=== PATIENT | female | born 1985 | race Caucasian/White ===

== ENCOUNTER 2024-02-01 04:11 | Observation (INO) ==
[2024-02-01] MEDS: ZOFRAN INJ 4 MG VIAL IM ONE (04:45)
--- NOTE | 2024-02-01 04:55 | DR.NAUSEAF ---
HPI Time Seen Time Seen by Provider: 02/01/24 04:55 Primary Care Physician Primary Care Physician: Navjot Mcdaniel Complaints Chief Complaint:: Patient ambulatory in er with complaints of acute onset nausea and vomiting that started prior to arival. Patient localizes pain to mid abdomen and rates pain 10/10. Pt states lbm was today. Self Treatment fo Chief Complaint: na COVID-19 Coronavirus risk:travel/contact w/high risk person: No Has patient experienced Coronavirus symptoms: No Reviewed Nurses Notes Reviewed: Yes Source History Provided: Patient Mode of Arrival Mode of Arrival: Ambulatory Timing Onset of Chief Complaint: 02/01/24 PMH PMH Past Medical History: Yes Past Medical History: Anxiety and Depression Past Surgical History: No Family History History of Family Medical Conditions: Yes Family Medical History: Hypertension Social History Does patient currently use any type of tobacco product: Yes Have you used tobacco products in the last 12 months: Yes Type of Tobacco Use: Cigarettes Does any household member use tobacco: Yes Alcohol Use: None Do you use any recreational Drugs:: No Lives With: Family Lives Where: Home Travel Risk Coronavirus risk:travel/contact w/high risk person: No Has patient experienced Coronavirus symptoms: No Infectious screening Have you traveled outside the country in the last 6 months?: No Isolation: Standard PE Vital Signs Vitals: Vital Signs Temperature 98.8 F Pulse Rate [Bilateral Radial] 95 Pulse Rate 84 Respiratory Rate 16 Respiratory Rate 26 Blood Pressure [Right Arm] 108/59 Blood Pressure 107/68 O2 Sat by Pulse Oximetry 100 O2 Sat by Pulse Oximetry 94 ROR Labs Reviewed 02/04/24 05:20 02/04/24 05:20 Laboratory: 02/01/24 06:33 Urine,Clean Catch Urine Culture - Final WBC 20.5 X10^3/uL (3.6-10.0) H 02/01/24 05:11 RBC 4.84 X10^6/uL (3.5-5.4) 02/01/24 05:11 Hgb 13.8 g/dL (12.0-16.0) 02/01/24 05:11 Hct 42.2 % (36.0-47.0) 02/01/24 05:11 MCV 87.3 fL (80.0-100.0) 02/01/24 05:11 MCH 28.5 pg (27.0-34.0) 02/01/24 05:11 MCHC 32.7 g/dL (33.0-35.0) L 02/01/24 05:11 RDW 14.8 % (11.6-16.5) 02/01/24 05:11 Plt Count 302 X10^3/uL (150.0-450.0) 02/01/24 05:11 MPV 8.9 fL (7.4-11.0) 02/01/24 05:11 Neut % (Auto) 87.6 % (42.0-75.0) H 02/01/24 05:11 Lymph % (Auto) 6.2 % (21.0-51.0) L 02/01/24 05:11 [place] % (Auto) 4.6 % (0.0-13.0) 02/01/24 05:11 Eos % (Auto) 1.1 % (0.9-2.9) 02/01/24 05:11 Baso % (Auto) 0.5 % (0.2-1.0) 02/01/24 05:11 Neut # (Auto) 18.0 x10^3/uL (2.2-4.8) H 02/01/24 05:11 Lymph # (Auto) 1.3 X10^3/uL (1.3-2.9) 02/01/24 05:11 [place] # (Auto) 0.9 x10^3/uL (0.3-0.8) H 02/01/24 05:11 Eos # (Auto) 0.2 x10^3/uL (0.0-0.2) 02/01/24 05:11 Baso # (Auto) 0.1 X10^3/uL (0.0-0.1) 02/01/24 05:11 Absolute Nucleated RBC 0.0 /100WBC 02/01/24 05:11 Sodium 140 mmol/L (136-145) 02/01/24 05:11 Corrected Sodium 140 mmol/L (136-145) 02/01/24 05:11 Potassium 4.9 mmol/L (3.5-5.1) 02/01/24 05:11 Chloride 105 mmol/L (98-107) 02/01/24 05:11 Carbon Dioxide 29.4 mmol/L (21-32) 02/01/24 05:11 BUN 9 mg/dL (7-18) 02/01/24 05:11 Creatinine 0.78 mg/dL (0.55-1.02) 02/01/24 05:11 Est GFR (MDRD) Af Amer > 60 (>60) 02/01/24 05:11 Est GFR (MDRD) Non-Af > 60 (>60) 02/01/24 05:11 Glucose 116 mg/dL (65-99) H 02/01/24 05:11 Calcium 9.1 mg/dL (8.5-10.1) 02/01/24 05:11 Corrected Calcium TNP 02/01/24 05:11 Total Bilirubin 0.40 mg/dL (0.2-1.0) 02/01/24 05:11 AST 227 Units/L (15-37) H 02/01/24 05:11 ALT 427 Units/L (12-78) H 02/01/24 05:11 Alkaline Phosphatase 133 Units/L (46-116) H 02/01/24 05:11 Total Protein 7.8 g/dL (6.4-8.2) 02/01/24 05:11 Albumin 3.5 g/dL (3.4-5.0) 02/01/24 05:11 Globulin 4.3 g/dL (2.5-4.5) 02/01/24 05:11 Albumin/Globulin Ratio 0.8 Ratio (1.1-2.1) L 02/01/24 05:11 Amylase 99 Units/L (25-115) 02/01/24 05:11 Lipase 38 Units/L (16-77) 02/01/24 05:11 Specimen Type Clean catch urine 02/01/24 06:33 Urine Color Yellow (YELLOW) 02/01/24 06:33 Urine Appearance Slightly hazy (CLEAR) 02/01/24 06:33 Urine pH 6.0 (5.0 - 8.0) 02/01/24 06:33 Ur Specific [place] 1.020 (1.000-1.030) 02/01/24 06:33 Urine Protein 1+ (NEGATIVE) 02/01/24 06:33 Urine Glucose (UA) Negative (NEGATIVE) 02/01/24 06:33 Urine Ketones Negative (NEGATIVE) 02/01/24 06:33 Urine Blood 5+ (NEGATIVE) 02/01/24 06:33 Urine Nitrite Negative (NEGATIVE) 02/01/24 06:33 Urine Bilirubin Negative (NEGATIVE) 02/01/24 06:33 Urine Urobilinogen Normal (NORMAL) 02/01/24 06:33 Ur Leukocyte Esterase 3+ (NEGATIVE) 02/01/24 06:33 Urine RBC Tntc /HPF (0-3) A 02/01/24 06:33 Urine WBC 10-20 /HPF (0-5) A 02/01/24 06:33 Ur Squamous Epith Cells Rare /HPF (NEGATIVE) 02/01/24 06:33 Urine Bacteria Trace /HPF (NEGATIVE) 02/01/24 06:33 Urine Trichomonas Rare /HPF (NEGATIVE) 02/01/24 06:33 Ur Culture Indicated? Yes/culture set up 02/01/24 06:33 Opioid Opioid Risk Tool Age (Drew box if 16-45): Yes History of Preadolescent Sexual Abuse: No Total: 1 Total Score Risk Category: Low Risk Copyright: Rogelio MIKE predicting aberrant behaviors Discharge Plan Discharge Plan Patient Disposition: 09 ADMITTED INPATIENT Condition: Stable Orders to Discharge Patient Discharge Orders: Discharge (Routine); Ordered 02/04/24 Ordered By: POOJA FAULKNER
[2024-02-01] MEDS: NS 1,000 ML IV 1,000 ML IV ONE (05:12)
[2024-02-01] MEDS: ZOFRAN INJ 4 MG VIAL IVP ONE ×2 (05:16→06:29)
[2024-02-01 05:17] LABS: BASOPHILS # (AUTO) 0.1 X10^3/uL (0.0-0.1); BASOPHILS % (AUTO) 0.5 % (0.2-1.0); EOSINOPHILS # (AUTO) 0.2 x10^3/uL (0.0-0.2); EOSINOPHILS % (AUTO) 1.1 % (0.9-2.9); HEMATOCRIT 42.2 % (36.0-47.0); HEMOGLOBIN 13.8 g/dL (12.0-16.0); LYMPHOCYTES # (AUTO) 1.3 X10^3/uL (1.3-2.9); LYMPHOCYTES % (AUTO) 6.2 % (21.0-51.0); MEAN CORPUSCULAR HEMOGLOBIN 28.5 pg (27.0-34.0); MEAN CORPUSCULAR HGB CONC 32.7 g/dL (33.0-35.0); MEAN CORPUSCULAR VOLUME 87.3 fL (80.0-100.0); MEAN PLATELET VOLUME 8.9 fL (7.4-11.0); MONOCYTES # (AUTO) 0.9 x10^3/uL (0.3-0.8); MONOCYTES % (AUTO) 4.6 % (0.0-13.0); NEUTROPHILS % (AUTO) 87.6 % (42.0-75.0); PLATELET COUNT 302 X10^3/uL (150.0-450.0); RED BLOOD COUNT 4.84 X10^6/uL (3.5-5.4); RED CELL DISTRIBUTION WIDTH 14.8 % (11.6-16.5); WHITE BLOOD COUNT 20.5 X10^3/uL (3.6-10.0)
[2024-02-01 05:33] LABS: ALANINE AMINOTRANSFERASE 427 Units/L (12-78); ALBUMIN 3.5 g/dL (3.4-5.0); ALKALINE PHOSPHATASE 133 Units/L (46-116); AMYLASE 99 Units/L (25-115); ASPARTATE AMINO TRANSFERASE 227 Units/L (15-37); BLOOD UREA NITROGEN 9 mg/dL (7-18); CALCIUM 9.1 mg/dL (8.5-10.1); CARBON DIOXIDE 29.4 mmol/L (21-32); CHLORIDE 105 mmol/L (98-107); COR NA(FOR HYPERGLY) 140 mmol/L (136-145); CREATININE 0.78 mg/dL (0.55-1.02); GLUCOSE 116 mg/dL (65-99); LIPASE 38 Units/L (16-77); SODIUM 140 mmol/L (136-145); TOTAL PROTEIN 7.8 g/dL (6.4-8.2); eGFR NON BLACK RACES > 60 (>60)
[2024-02-01 05:34] LABS: POTASSIUM 4.9 mmol/L (3.5-5.1)
--- NOTE | 2024-02-01 05:46 | CT ---
PROCEDURE: CT Abdomen and Pelvis without IV Contrast.HISTORY: Abdomen pain and emesis.TECHNIQUE: Axial images were performed through the abdomen and pelvis without the administration of IV contrast with multiplanar reformations . Oral contrast was notadministered . Dose reduction techniques including Automated Exposure Control (AEC) and adjustment of mA and kV were utilized ..COMPARISON: None.TECHNICAL QUALITY: Satisfactory.FINDINGS:Clear lung bases.Liver, spleen, adrenals, and pancreas show no significant abnormality.Kidneys show no stones or obstruction.1 cm gallstone in the gallbladder with no inflammation and normal biliary tree.No ascites or pneumoperitoneum.Normal aorta.No lymphadenopathy.Fluid throughout the colon could be related to enteritis. No mucosal thickening. Normal appendix.Pelvis shows no masses or free fluid with unremarkable reproductive organs and urinary bladder.Probable dislodged tubal ligation clips upper abdomen and right lower quadrant.No acute bony abnormality.IMPRESSION:1. Cholelithiasis.2. Fluid throughout the colon and some in the small bowel could be related to enteritis that could be infectious or related to inflammatory bowel disease. No definite mucosal thickening is seen however.3. No other significant abnormality identified.THIS IS AN ELECTRONICALLY VERIFIED FINAL REPORT02/01/2024 5:42 AM - Electronically signed by Tavares Card MD
[2024-02-01 06:38] LABS: BILIRUBIN,URINE NEGATIVE (NEGATIVE); BLOOD/HEMOGLOBIN,URINE 5+ (NEGATIVE); GLUCOSE, URINE NEGATIVE (NEGATIVE); KETONES,URINE NEGATIVE (NEGATIVE); LEUKOCYTE ESTERASE ,URINE 3+ (NEGATIVE); NITRITES,URINE NEGATIVE (NEGATIVE); PROTEIN,URINE 1+ (NEGATIVE); UROBILINOGEN,URINE NORMAL (NORMAL)
[2024-02-01 07:00] LABS: APPEARANCE,URINE SLIGHTLY HAZY (CLEAR); COLOR,URINE YELLOW (YELLOW)
[2024-02-01 07:01] LABS: BACTERIA,URINE TRACE /HPF (NEGATIVE); RBC,URINE TNTC /HPF (0-3); SQUAMOUS EPITHELIAL CELL,UR RARE /HPF (NEGATIVE); TRICHOMONAS,URINE RARE /HPF (NEGATIVE)
[2024-02-01] MEDS: ROCEPHIN VIAL 1 GRAM IVP ONE (08:19)
[2024-02-01] MEDS ORDERED: MAGNESIUM SULFATE 40 GRAMS IV 40 G/1,000 ML BAG IV PRN (10:52)
[2024-02-01 11:32] VITALS: BMI 23.3
[2024-02-01] MEDS: NS 1,000 ML IV 1,000 ML IV SCH (11:43)
[2024-02-01] MEDS: PROTONIX INJ 40 MG VIAL IVP SCH (11:55)
[2024-02-01] MEDS: ZOFRAN INJ 4 MG VIAL IVP PRN (12:02)
--- NOTE | 2024-02-01 12:33 | DR.H&P ---
H&P History & Physical for Day of: H&P Date: 02/01/24 Chief Complaint Chief Complaint: ABDMINAL PAIN, N/V Allergies Allergies Allergy/AdvReac Type Severity Reaction Status Date / Time No Known Allergies Allergy Verified 02/01/24 04:19 History of Present Illness History of Present Illness: PT IS 38 WF, ER ADMISSION WITH CO ABDOMINAL PAIN, N/V/D. PT REPORTS SHE HAS HAD STOMACH ISSUES FOR A LONG TIME TAKING PROTONIX PO AT HOME. PT DENIES EVERY HAVING AN EGD. PT HAD GALLSTONES ON CT. PT ADMITTED FOR TREATMENT AND EVALUTION OF ACUTE ILLNESS. Past Medical History Past Medical History: Anxiety, Depression and GERD Past Surgical History Surgical History: COMPENSATION MANAGER Surgery (TUBAL LIGATION) Family History Family Medical History: NE and Hypertension Social History Does patient currently use any type of tobacco product: Yes Have you used tobacco products in the last 12 months: Yes Type of Tobacco Use: Cigarettes How many years tobacco product used: 5 Does any household member use tobacco: No Alcohol Use: None Drug Use: None Medications Home Medications: Home Medications Medication Instructions Recorded Confirmed Type cariprazine 1.5 mg capsule 1.5 mg PO DAILY 02/01/24 02/01/24 History (Vraylar) pantoprazole 40 mg tablet,delayed 40 mg PO DAILY 02/01/24 02/01/24 History release (Protonix) quetiapine 100 mg tablet (Seroquel) 150 mg PO BID 02/01/24 02/01/24 History sertraline 50 mg tablet (Zoloft) 50 mg PO DAILY 02/01/24 02/01/24 History Labs 02/01/24 05:11 02/01/24 05:11 Labs: Laboratory WBC 20.5 X10^3/uL (3.6-10.0) H 02/01/24 05:11 RBC 4.84 X10^6/uL (3.5-5.4) 02/01/24 05:11 Hgb 13.8 g/dL (12.0-16.0) 02/01/24 05:11 Hct 42.2 % (36.0-47.0) 02/01/24 05:11 MCV 87.3 fL (80.0-100.0) 02/01/24 05:11 MCH 28.5 pg (27.0-34.0) 02/01/24 05:11 MCHC 32.7 g/dL (33.0-35.0) L 02/01/24 05:11 RDW 14.8 % (11.6-16.5) 02/01/24 05:11 Plt Count 302 X10^3/uL (150.0-450.0) 02/01/24 05:11 MPV 8.9 fL (7.4-11.0) 02/01/24 05:11 Neut % (Auto) 87.6 % (42.0-75.0) H 02/01/24 05:11 Lymph % (Auto) 6.2 % (21.0-51.0) L 02/01/24 05:11 [place] % (Auto) 4.6 % (0.0-13.0) 02/01/24 05:11 Eos % (Auto) 1.1 % (0.9-2.9) 02/01/24 05:11 Baso % (Auto) 0.5 % (0.2-1.0) 02/01/24 05:11 Neut # (Auto) 18.0 x10^3/uL (2.2-4.8) H 02/01/24 05:11 Lymph # (Auto) 1.3 X10^3/uL (1.3-2.9) 02/01/24 05:11 [place] # (Auto) 0.9 x10^3/uL (0.3-0.8) H 02/01/24 05:11 Eos # (Auto) 0.2 x10^3/uL (0.0-0.2) 02/01/24 05:11 Baso # (Auto) 0.1 X10^3/uL (0.0-0.1) 02/01/24 05:11 Absolute Nucleated RBC 0.0 /100WBC 02/01/24 05:11 Sodium 140 mmol/L (136-145) 02/01/24 05:11 Corrected Sodium 140 mmol/L (136-145) 02/01/24 05:11 Potassium 4.9 mmol/L (3.5-5.1) 02/01/24 05:11 Chloride 105 mmol/L (98-107) 02/01/24 05:11 Carbon Dioxide 29.4 mmol/L (21-32) 02/01/24 05:11 BUN 9 mg/dL (7-18) 02/01/24 05:11 Creatinine 0.78 mg/dL (0.55-1.02) 02/01/24 05:11 Est GFR (MDRD) Af Amer > 60 (>60) 02/01/24 05:11 Est GFR (MDRD) Non-Af > 60 (>60) 02/01/24 05:11 Glucose 116 mg/dL (65-99) H 02/01/24 05:11 Lactic Acid 0.8 mmol/L (0.4-2.0) 02/01/24 09:31 Calcium 9.1 mg/dL (8.5-10.1) 02/01/24 05:11 Corrected Calcium TNP 02/01/24 05:11 Total Bilirubin 0.40 mg/dL (0.2-1.0) 02/01/24 05:11 AST 227 Units/L (15-37) H 02/01/24 05:11 ALT 427 Units/L (12-78) H 02/01/24 05:11 Alkaline Phosphatase 133 Units/L (46-116) H 02/01/24 05:11 Total Protein 7.8 g/dL (6.4-8.2) 02/01/24 05:11 Albumin 3.5 g/dL (3.4-5.0) 02/01/24 05:11 Globulin 4.3 g/dL (2.5-4.5) 02/01/24 05:11 Albumin/Globulin Ratio 0.8 Ratio (1.1-2.1) L 02/01/24 05:11 Amylase 99 Units/L (25-115) 02/01/24 05:11 Lipase 38 Units/L (16-77) 02/01/24 05:11 Specimen Type Clean catch urine 02/01/24 06:33 Urine Color Yellow (YELLOW) 02/01/24 06:33 Urine Appearance Slightly hazy (CLEAR) 02/01/24 06:33 Urine pH 6.0 (5.0 - 8.0) 02/01/24 06:33 Ur Specific [place] 1.020 (1.000-1.030) 02/01/24 06:33 Urine Protein 1+ (NEGATIVE) 02/01/24 06:33 Urine Glucose (UA) Negative (NEGATIVE) 02/01/24 06:33 Urine Ketones Negative (NEGATIVE) 02/01/24 06:33 Urine Blood 5+ (NEGATIVE) 02/01/24 06:33 Urine Nitrite Negative (NEGATIVE) 02/01/24 06:33 Urine Bilirubin Negative (NEGATIVE) 02/01/24 06:33 Urine Urobilinogen Normal (NORMAL) 02/01/24 06:33 Ur Leukocyte Esterase 3+ (NEGATIVE) 02/01/24 06:33 Urine RBC Tntc /HPF (0-3) A 02/01/24 06:33 Urine WBC 10-20 /HPF (0-5) A 02/01/24 06:33 Ur Squamous Epith Cells Rare /HPF (NEGATIVE) 02/01/24 06:33 Urine Bacteria Trace /HPF (NEGATIVE) 02/01/24 06:33 Urine Trichomonas Rare /HPF (NEGATIVE) 02/01/24 06:33 Ur Culture Indicated? Yes/culture set up 02/01/24 06:33 Review of Systems Constitutional: No Symptoms Reported Eyes: No Symptoms Reported ENT: No Symptoms Reported Respiratory: No Symptoms Reported Cardiovascular: No Symptoms Reported Gastrointestinal: Nausea, Vomiting, Abdominal Pain and Diarrhea Genitourinary: No Symptoms Reported Musculoskeletal: No Symptoms Reported Skin: No Symptoms Reported Neurological: No Symptoms Reported Physical Exam Vital Signs: Vital Signs Pulse Rate [Bilateral Radial] 95 Respiratory Rate 16 Blood Pressure [Right Arm] 108/59 O2 Sat by Pulse Oximetry 100 Oriented: Normal Eyes: Normal Ear: Normal Nose: Normal Throat: Normal Respiratory: Clear Throughout Cardiovascular: Normal : Normal Auscultation: Bowel Sounds: Normal Palpation: negative Spleen Enlarged or Liver Enlarged Tenderness: RUQ and Epigastric Skin: Normal Musculoskeletal: Normal Psychiatric: Normal Mood Description: Calm Speech Pattern: Clear Assessment/Plan (1) Gallstones and inflammation of gallbladder without obstruction: Narrative Support Text: ADMIT, IV HYDRATION, IV ATBX THERAPY PAIN CONTROL US, DR HEARN CONSULTED IV PROTONIX VERIFY HOME MEDICATION Status: Acute (2) Gastritis: Status: Acute (3) Nausea: Status: Acute (4) UTI (urinary tract infection): Qualifiers: Hematuria presence: with hematuria Urinary tract infection type: site unspecified Qualified Code(s): N39.0 - Urinary tract infection, site not specified; R31.9 - Hematuria, unspecified Status: Acute
[2024-02-01] MEDS: LEVAQUIN PREMIX IV 500 MG 500 MG/100 ML BAG IV SCH (17:23)
[2024-02-01] MEDS: ZOFRAN INJ 4 MG VIAL ONE (17:53)
[2024-02-01] MEDS: ULTRAM PO PRN (23:24)
[2024-02-02 06:25] LABS: BASOPHILS # (AUTO) 0.1 X10^3/uL (0.0-0.1); BASOPHILS % (AUTO) 0.7 % (0.2-1.0); EOSINOPHILS # (AUTO) 0.4 x10^3/uL (0.0-0.2); EOSINOPHILS % (AUTO) 5.2 % (0.9-2.9); HEMATOCRIT 35.8 % (36.0-47.0); HEMOGLOBIN 11.7 g/dL (12.0-16.0); LYMPHOCYTES % (AUTO) 35.7 % (21.0-51.0); MEAN CORPUSCULAR HEMOGLOBIN 28.8 pg (27.0-34.0); MEAN CORPUSCULAR HGB CONC 32.7 g/dL (33.0-35.0); MEAN PLATELET VOLUME 9.8 fL (7.4-11.0); MONOCYTES # (AUTO) 0.8 x10^3/uL (0.3-0.8); MONOCYTES % (AUTO) 8.9 % (0.0-13.0); NEUTROPHILS # (AUTO) 4.2 x10^3/uL (2.2-4.8); NEUTROPHILS % (AUTO) 49.5 % (42.0-75.0); PLATELET COUNT 224 X10^3/uL (150.0-450.0); RED BLOOD COUNT 4.07 X10^6/uL (3.5-5.4); RED CELL DISTRIBUTION WIDTH 14.1 % (11.6-16.5); WHITE BLOOD COUNT 8.5 X10^3/uL (3.6-10.0)
[2024-02-02 06:30] LABS: ALANINE AMINOTRANSFERASE 284 Units/L (12-78); ALBUMIN 2.5 g/dL (3.4-5.0); ALKALINE PHOSPHATASE 110 Units/L (46-116); AMYLASE 104 Units/L (25-115); ASPARTATE AMINO TRANSFERASE 129 Units/L (15-37); BLOOD UREA NITROGEN 6 mg/dL (7-18); CALCIUM 7.8 mg/dL (8.5-10.1); CARBON DIOXIDE 30.3 mmol/L (21-32); CHLORIDE 107 mmol/L (98-107); CREATININE 0.67 mg/dL (0.55-1.02); GLUCOSE 90 mg/dL (65-99); LIPASE 100 Units/L (16-77); POTASSIUM 4.3 mmol/L (3.5-5.1); SODIUM 139 mmol/L (136-145); TOTAL PROTEIN 5.7 g/dL (6.4-8.2); eGFR NON BLACK RACES > 60 (>60)
[2024-02-02] MEDS: LR 1,000 ML IV 1,000 ML IV ONE (09:20)
[2024-02-02] MEDS: DIPRIVAN VIAL 20 ML ONE (09:24)
--- NOTE | 2024-02-02 10:37 | US ---
EXAM:GALL BLADDERHISTORY:gall stones; UTI, CHOLELITHIASIS, GB COLIC.COMPARISON:CT abdomen and pelvis 02/01/2024TECHNIQUE:85 images made by the dairy department manager. Naisl scale and color-flow images of the right upper quadrant were obtained.FINDINGS:The liver has normal echogenicity and size. No mass or intrahepatic biliary duct dilatation is present. The intrahepatic inferior vena cava was imaged. The visualized hepatic veins are patent with blood flow toward the right atrium. The portal vein is patent with blood flow toward the liver. The hepatic artery was patent.Limited visualization of the pancreas shows no significant abnormality.Echogenic areas with shadowing are present compatible with gallstones. No extrahepatic biliary duct dilatation; common duct is normal.The right kidney is normal in size and echogenicity. No hydronephrosis. Resistive index measures 0.6IMPRESSION:1. CholelithiasisTHIS IS AN ELECTRONICALLY VERIFIED FINAL REPORT02/02/2024 10:18 AM - Electronically signed by Jamie Gee MD
[2024-02-02] MEDS ORDERED: TYLENOL 325 MG TAB PO PRN (19:03)
[2024-02-02] MEDS: NICOTINE PATCH TD SCH (19:28)
[2024-02-03 05:43] LABS: BASOPHILS # (AUTO) 0.1 X10^3/uL (0.0-0.1); BASOPHILS % (AUTO) 0.8 % (0.2-1.0); EOSINOPHILS # (AUTO) 0.4 x10^3/uL (0.0-0.2); EOSINOPHILS % (AUTO) 4.7 % (0.9-2.9); HEMATOCRIT 32.8 % (36.0-47.0); HEMOGLOBIN 10.8 g/dL (12.0-16.0); LYMPHOCYTES # (AUTO) 2.2 X10^3/uL (1.3-2.9); LYMPHOCYTES % (AUTO) 29.3 % (21.0-51.0); MEAN CORPUSCULAR HEMOGLOBIN 29.1 pg (27.0-34.0); MEAN CORPUSCULAR HGB CONC 33.1 g/dL (33.0-35.0); MEAN CORPUSCULAR VOLUME 87.9 fL (80.0-100.0); MEAN PLATELET VOLUME 10.3 fL (7.4-11.0); MONOCYTES # (AUTO) 0.8 x10^3/uL (0.3-0.8); MONOCYTES % (AUTO) 10.5 % (0.0-13.0); NEUTROPHILS # (AUTO) 4.1 x10^3/uL (2.2-4.8); NEUTROPHILS % (AUTO) 54.7 % (42.0-75.0); PLATELET COUNT 189 X10^3/uL (150.0-450.0); RED BLOOD COUNT 3.73 X10^6/uL (3.5-5.4); WHITE BLOOD COUNT 7.4 X10^3/uL (3.6-10.0)
[2024-02-03 05:48] LABS: ALANINE AMINOTRANSFERASE 252 Units/L (12-78); ALBUMIN 2.3 g/dL (3.4-5.0); ALKALINE PHOSPHATASE 113 Units/L (46-116); ASPARTATE AMINO TRANSFERASE 120 Units/L (15-37); BLOOD UREA NITROGEN 5 mg/dL (7-18); CALCIUM 7.8 mg/dL (8.5-10.1); CARBON DIOXIDE 29.7 mmol/L (21-32); CHLORIDE 108 mmol/L (98-107); COR CA(FOR HYPOALB) 9.2 mg/dL (8.5-10.1); CREATININE 0.69 mg/dL (0.55-1.02); GLUCOSE 90 mg/dL (65-99); POTASSIUM 4.1 mmol/L (3.5-5.1); SODIUM 141 mmol/L (136-145); TOTAL PROTEIN 5.3 g/dL (6.4-8.2); eGFR NON BLACK RACES > 60 (>60)
[2024-02-03] MEDS: HIBICLENS WASH EXT ONE (06:11)
[2024-02-03] MEDS: LR 1,000 ML IV 1,000 ML IV ONE (07:42)
[2024-02-03] MEDS: ANCEF VIAL 1 GRAM ONE (09:20)
[2024-02-03] MEDS: NS 100 ML IV 100 ML ONE (09:20)
[2024-02-03] MEDS ORDERED: BARHEMSYS INJ IVP PRN (09:21)
[2024-02-03] MEDS ORDERED: REGLAN INJ 10 MG VIAL IVP PRN (09:21)
[2024-02-03] MEDS ORDERED: ZOFRAN INJ 4 MG VIAL IVP PRN (09:21)
[2024-02-03] MEDS ORDERED: BENADRYL INJ 50 MG VIAL IVP PRN (09:21)
[2024-02-03] MEDS: PEPCID 20 MG VIAL ONE (09:26)
[2024-02-03] MEDS: FENTANYL VIAL INJ 250 mcg ONE (09:26)
[2024-02-03] MEDS: TORADOL 30 MG VIAL ONE (09:26)
[2024-02-03] MEDS ORDERED: SUPRANE ONE (09:26)
[2024-02-03] MEDS: VERSED ONE (09:26)
[2024-02-03] MEDS: ZEMURON 100 MG VIAL ONE (09:26)
[2024-02-03] MEDS: BRIDION ONE (09:26)
[2024-02-03] MEDS: DIPRIVAN VIAL 20 ML ONE (09:26)
[2024-02-03] MEDS: ZOFRAN INJ 4 MG VIAL ONE (09:26)
[2024-02-03] MEDS: BETADINE SOLN ONE (09:36)
[2024-02-03] MEDS: BACTROBAN TOPICAL OINT ONE (09:50)
[2024-02-03] MEDS: DILAUDID INJ ONE (11:03)
[2024-02-03] MEDS: DILAUDID INJ IVP PRN ×2 (11:06→17:35)
[2024-02-03] MEDS: MORPHINE SULFATE INJ 2 MG INJ IVP PRN (14:10)
[2024-02-03] MEDS: PHENERGAN INJ 25 MG IM PRN (17:31)
[2024-02-04] MEDS ORDERED: HIBICLENS WASH EXT ONE (05:00)
[2024-02-04 06:16] LABS: BASOPHILS % (AUTO) 0.5 % (0.2-1.0); EOSINOPHILS # (AUTO) 0.3 x10^3/uL (0.0-0.2); EOSINOPHILS % (AUTO) 4.3 % (0.9-2.9); HEMATOCRIT 32.3 % (36.0-47.0); HEMOGLOBIN 10.7 g/dL (12.0-16.0); LYMPHOCYTES # (AUTO) 2.4 X10^3/uL (1.3-2.9); LYMPHOCYTES % (AUTO) 34.6 % (21.0-51.0); MEAN CORPUSCULAR HGB CONC 33.2 g/dL (33.0-35.0); MEAN CORPUSCULAR VOLUME 87.4 fL (80.0-100.0); MEAN PLATELET VOLUME 10.3 fL (7.4-11.0); MONOCYTES # (AUTO) 0.5 x10^3/uL (0.3-0.8); NEUTROPHILS # (AUTO) 3.7 x10^3/uL (2.2-4.8); NEUTROPHILS % (AUTO) 53.6 % (42.0-75.0); PLATELET COUNT 208 X10^3/uL (150.0-450.0); RED CELL DISTRIBUTION WIDTH 14.4 % (11.6-16.5); WHITE BLOOD COUNT 6.9 X10^3/uL (3.6-10.0)
[2024-02-04 06:24] LABS: ALANINE AMINOTRANSFERASE 246 Units/L (12-78); ALBUMIN 2.2 g/dL (3.4-5.0); ALKALINE PHOSPHATASE 115 Units/L (46-116); ASPARTATE AMINO TRANSFERASE 117 Units/L (15-37); BLOOD UREA NITROGEN 4 mg/dL (7-18); CALCIUM 7.8 mg/dL (8.5-10.1); CARBON DIOXIDE 27.6 mmol/L (21-32); CHLORIDE 106 mmol/L (98-107); COR CA(FOR HYPOALB) 9.2 mg/dL (8.5-10.1); CREATININE 0.63 mg/dL (0.55-1.02); GLUCOSE 89 mg/dL (65-99); POTASSIUM 3.7 mmol/L (3.5-5.1); SODIUM 140 mmol/L (136-145); TOTAL PROTEIN 5.2 g/dL (6.4-8.2); eGFR NON BLACK RACES > 60 (>60)
[2024-02-04 16:00] VITALS: BP 111/66; PULSE 81; RESP 18; TEMP 98; O2SAT 92
--- NOTE | 2024-02-04 18:02 | PCM.DCPLAN ---
DISCHARGE SUMMARY Admission Date Date of Admission: 02/01/24 Discharge Date Discharge Date: 02/04/24 Admission Diagnoses (1) Gallstones and inflammation of gallbladder without obstruction: Status: Acute (2) Gastritis: Status: Acute (3) Nausea: Status: Acute (4) UTI (urinary tract infection): Status: Acute Discharge Diagnoses Discharge Diagnosis: Resolved gallstones and inflammation of gallbladder without obstruction, resolved gastritis, resolved nausea, resolved uti. Discharge Medications Discharge Medications: Home Medication List cariprazine 1.5 mg capsule (Vraylar) 1.5 mg PO DAILY 02/01/24 [History] pantoprazole 40 mg tablet,delayed release (Protonix) 40 mg PO DAILY 02/01/24 [History] quetiapine 100 mg tablet (Seroquel) 150 mg PO BID 02/01/24 [History] sertraline 50 mg tablet (Zoloft) 50 mg PO DAILY 02/01/24 [History] hydrocodone 5 mg-acetaminophen 325 mg tablet 1 tab PO Q4H PRN #20 tabs 02/04/24 [Rx] Pres[facility]: [facility] Vital Signs: Vital Signs Respiratory Rate 20 Latest Lab Results: Laboratory Last Values WBC 6.9 X10^3/uL (3.6-10.0) 02/04/24 05:20 RBC 3.70 X10^6/uL (3.5-5.4) 02/04/24 05:20 Hgb 10.7 g/dL (12.0-16.0) L 02/04/24 05:20 Hct 32.3 % (36.0-47.0) L 02/04/24 05:20 MCV 87.4 fL (80.0-100.0) 02/04/24 05:20 MCH 29.0 pg (27.0-34.0) 02/04/24 05:20 MCHC 33.2 g/dL (33.0-35.0) 02/04/24 05:20 RDW 14.4 % (11.6-16.5) 02/04/24 05:20 Plt Count 208 X10^3/uL (150.0-450.0) 02/04/24 05:20 MPV 10.3 fL (7.4-11.0) 02/04/24 05:20 Neut % (Auto) 53.6 % (42.0-75.0) 02/04/24 05:20 Lymph % (Auto) 34.6 % (21.0-51.0) 02/04/24 05:20 [place] % (Auto) 7.0 % (0.0-13.0) 02/04/24 05:20 Eos % (Auto) 4.3 % (0.9-2.9) H 02/04/24 05:20 Baso % (Auto) 0.5 % (0.2-1.0) 02/04/24 05:20 Neut # (Auto) 3.7 x10^3/uL (2.2-4.8) 02/04/24 05:20 Lymph # (Auto) 2.4 X10^3/uL (1.3-2.9) 02/04/24 05:20 [place] # (Auto) 0.5 x10^3/uL (0.3-0.8) 02/04/24 05:20 Eos # (Auto) 0.3 x10^3/uL (0.0-0.2) H 02/04/24 05:20 Baso # (Auto) 0.0 X10^3/uL (0.0-0.1) 02/04/24 05:20 Absolute Nucleated RBC 0.1 /100WBC 02/04/24 05:20 Sodium 140 mmol/L (136-145) 02/04/24 05:20 Corrected Sodium TNP 02/04/24 05:20 Potassium 3.7 mmol/L (3.5-5.1) 02/04/24 05:20 Chloride 106 mmol/L (98-107) 02/04/24 05:20 Carbon Dioxide 27.6 mmol/L (21-32) 02/04/24 05:20 BUN 4 mg/dL (7-18) L 02/04/24 05:20 Creatinine 0.63 mg/dL (0.55-1.02) 02/04/24 05:20 Est GFR (MDRD) Af Amer > 60 (>60) 02/04/24 05:20 Est GFR (MDRD) Non-Af > 60 (>60) 02/04/24 05:20 Glucose 89 mg/dL (65-99) 02/04/24 05:20 Lactic Acid 0.8 mmol/L (0.4-2.0) 02/01/24 09:31 Calcium 7.8 mg/dL (8.5-10.1) L 02/04/24 05:20 Corrected Calcium 9.2 mg/dL (8.5-10.1) 02/04/24 05:20 Total Bilirubin 0.60 mg/dL (0.2-1.0) 02/04/24 05:20 AST 117 Units/L (15-37) H 02/04/24 05:20 ALT 246 Units/L (12-78) H 02/04/24 05:20 Alkaline Phosphatase 115 Units/L (46-116) 02/04/24 05:20 Total Protein 5.2 g/dL (6.4-8.2) L 02/04/24 05:20 Albumin 2.2 g/dL (3.4-5.0) L 02/04/24 05:20 Globulin 3.0 g/dL (2.5-4.5) 02/04/24 05:20 Albumin/Globulin Ratio 0.7 Ratio (1.1-2.1) L 02/04/24 05:20 Amylase 104 Units/L (25-115) 02/02/24 05:45 Lipase 100 Units/L (16-77) H 02/02/24 05:45 Specimen Type Clean catch urine 02/01/24 06:33 Urine Color Yellow (YELLOW) 02/01/24 06:33 Urine Appearance Slightly hazy (CLEAR) 02/01/24 06:33 Urine pH 6.0 (5.0 - 8.0) 02/01/24 06:33 Ur Specific [place] 1.020 (1.000-1.030) 02/01/24 06:33 Urine Protein 1+ (NEGATIVE) 02/01/24 06:33 Urine Glucose (UA) Negative (NEGATIVE) 02/01/24 06:33 Urine Ketones Negative (NEGATIVE) 02/01/24 06:33 Urine Blood 5+ (NEGATIVE) 02/01/24 06:33 Urine Nitrite Negative (NEGATIVE) 02/01/24 06:33 Urine Bilirubin Negative (NEGATIVE) 02/01/24 06:33 Urine Urobilinogen Normal (NORMAL) 02/01/24 06:33 Ur Leukocyte Esterase 3+ (NEGATIVE) 02/01/24 06:33 Urine RBC Tntc /HPF (0-3) A 02/01/24 06:33 Urine WBC 10-20 /HPF (0-5) A 02/01/24 06:33 Ur Squamous Epith Cells Rare /HPF (NEGATIVE) 02/01/24 06:33 Urine Bacteria Trace /HPF (NEGATIVE) 02/01/24 06:33 Urine Trichomonas Rare /HPF (NEGATIVE) 02/01/24 06:33 Ur Culture Indicated? Yes/culture set up 02/01/24 06:33 Hospital Course: This is a pleasant 38-year-old white female who was an ER admission with urinary tract infection, cholelithasis, cholecystitis, and upper abdominal pain. The patient was started on IV antibiotics and gentle IV hydration. Upon admission, her white count was up at 20.5. The following morning her wbc was down to 8.5 and yesterday morning down to 7.3. Blood and urine cultures obtained on admission and showing no growth. She has been on twice a day PPI therapy with a long history of food intolerance, abdominal pain, and gastroesophageal reflux disease symptoms. She had a CT abdomen/pelvis that showed gallstones, fluid throughout the colon, and some of the small intestines could be related to enteritis. No other significant abnormality identified. She had a gallbladder ultrasound that showed cholelithasis. Dr. Blevins was consulted and she had a cholecystectomy yesterday. She tolerated well. Morning labs: hgb 10.7, wbc 6.9, bun 4/creatinine 0.63. AM vitals: 109/79-70-18-97.6-92% room air. The patient states that she is feeling much improved, so we will allow her to discharge home on hydrocodone for pain management. She will need to follow up with her PCP within 1 week. She will also need to follow up with surgeon and has an appointment with him scheduled for 02/12/24 at 3:40PM. Please see discharge plan for list of discharge medication s and modifications that we made, electronic medical record for diagnostic tests and labs. The patient was instructed to return to the ER if condition changed or worsened unexpectedly.
== END 2024-02-04 15:50 | disposition home or self-care (01) ==
LOC: ER 04:16 → MED/SURG 04:16
PROVIDERS: ADMIT Internal Medicine; ATTEND Internal Medicine